=== PATIENT | female | born 1950 | race Caucasian/White ===

== ENCOUNTER 2016-10-08 07:00 | Inpatient (IN) | payer MEDICARE, OTHER ==
[2016-10-09 04:04] LABS: HCT 32.8 % (37.0-47.0); HGB 10.8 g/dl (12.5-16.0); MCH 30.3 pg (25.0-31.0); MCHC 32.9 g/dL (32.0-36.0); MCV 92.1 fL (78.0-100.0); RBC 3.56 M/uL (4.20-5.40); RDW 14.3 % (11.5-14.0); WBC 9.4 K/uL (4.0-10.5)
[2016-10-09 04:24] LABS: CREATININE 0.9 mg/dL (0.5-1.0); POTASSIUM 4.3 mmol/L (3.5-5.1)
[2016-10-10 04:42] LABS: HCT 28.9 % (37.0-47.0); HGB 9.5 g/dl (12.5-16.0); MCH 30.8 pg (25.0-31.0); MCHC 32.9 g/dL (32.0-36.0); MCV 93.8 fL (78.0-100.0); MPV 8.6 fL (6.0-9.5); RBC 3.08 M/uL (4.20-5.40); RDW 14.2 % (11.5-14.0); WBC 7.5 K/uL (4.0-10.5)
[2016-10-10 05:02] LABS: CREATININE 0.8 mg/dL (0.5-1.0); POTASSIUM 4.6 mmol/L (3.5-5.1)
[2016-10-11 05:40] LABS: HCT 27.6 % (37.0-47.0); HGB 9.1 g/dl (12.5-16.0); MCH 30.5 pg (25.0-31.0); MCV 92.6 fL (78.0-100.0); MPV 9.1 fL (6.0-9.5); RBC 2.98 M/uL (4.20-5.40); RDW 13.7 % (11.5-14.0); WBC 7.3 K/uL (4.0-10.5)
== END 2016-10-12 13:13 | DRG 470 ==
LOC: FMS 08:30
PROVIDERS: Internal Medicine; ADMIT Legal Medicine
PROC: 0SR904A Replacement of Right Hip Joint with Ceramic on Polyethylene Synthetic Substitute, Uncemented, Open Approach (ICD-10-PCS; principal; 2016-10-08 08:30)
DX: M16.11 Unilateral primary osteoarthritis, right hip (principal); H57.02 Anisocoria; Z22.322 Carrier or suspected carrier of Methicillin resistant Staphylococcus aureus
CPT/HCPCS: 36415; 73501; 76000; 80048; 86850; 86900; 86901; 88304; 88311; 94010; 94762; 97110; 97116; 97161; 97165; 97530; 97530-GP; 97535; C1776; J0131; J0697; J1170; J1885; J2270; J2405; J2704; J2795; J3010

== ENCOUNTER 2016-10-12 13:24 | Inpatient (IN) | payer MEDICARE, OTHER ==
[2016-10-19] MEDS ORDERED: ACETAMINOPHEN325 MG PO (11:45)
[2016-10-19] MEDS ORDERED: FEOSOL325 MG PO (11:46)
[2016-10-19] MEDS ORDERED: XARELTO10 MG PO (11:46)
[2016-10-19] MEDS ORDERED: PROTONIX 40MG T40 MG PO (11:46)
[2016-10-19] MEDS ORDERED: COLACE100 MG PO (11:46)
== END 2016-10-19 11:22 | disposition home or self-care (01) | DRG 561 ==
LOC: FSNU 13:24
PROVIDERS: ADMIT Legal Medicine
DX: Z47.1 Aftercare following joint replacement surgery (principal); H57.9 Unspecified disorder of eye and adnexa; Z96.641 Presence of right artificial hip joint; Z88.8 Allergy status to other drugs, medicaments and biological substances; T44.3X5A Adverse effect of other parasympatholytics [anticholinergics and antimuscarinics] and spasmolytics, initial encounter; Y92.230 Patient room in hospital as the place of occurrence of the external cause
CPT/HCPCS: 97110; 97116; 97161; 97165; 97530; 97530-GP; 97535

== ENCOUNTER 2017-01-17 11:13 | Emergency (ER) | payer MEDICARE, OTHER ==
[~2017-01-17 11:13] MED LIST: ACETAMINOPHEN325 MG PO; COLACE100 MG PO; FEOSOL325 MG PO; PROTONIX 40MG T40 MG PO; XARELTO10 MG PO
== END 2017-01-17 13:55 | disposition home or self-care (01) ==
LOC: FER 11:13
DX: S76.011A Strain of muscle, fascia and tendon of right hip, initial encounter (principal); Z98.890 Other specified postprocedural states; X58.XXXA Exposure to other specified factors, initial encounter
CPT/HCPCS: 72170; 73502; 99283